=== PATIENT | male | born 1965 | race Caucasian/White ===

== ENCOUNTER → 2020-11-01 | Outpatient (CLI) | payer BC ==
--- NOTE | 2020-11-01 17:49 | DIREP ---
PROCEDURE:CT ABDOMEN W/ + W/O CONTRAST COMPARISON:None. INDICATIONS:R10.13 EPIGASTRIC PAIN TECHNIQUE:Axial images were created through the abdomen with and without non-ionic intravenous contrast material. Oral contrast was administered. Sagittal and coronal reconstructions were performed from source images. FINDINGS: LUNG BASES:Normal. No visible pulmonary or pleural disease. LIVER:Normal. No significant liver lesions are identified. BILIARY:Normal. No visible dilatation or calcification. PANCREAS:Normal. No lesion, fluid collection, ductal dilatation, or atrophy. SPLEEN:Normal. No enlargement or focal lesion. ADRENALS:Normal. No mass or enlargement. URINARY TRACT:Normal. No focal lesions or hydronephrosis. AORTA/VASCULAR:Normal. No aneurysm. RETROPERITONEUM:Normal. No mass or adenopathy. BOWEL/MESENTERY:Bowel only partially visualized as CT pelvis not ordered. Moderate stool seen throughout the colon. Small bowel partially opacified and normal in caliber. Contrast extends into the cecum. No bowel dilatation. No free fluid, free air or mesenteric inflammatory changes. ABDOMINAL WALL:Normal. No mass or hernia. PELVIC ORGANS:The pelvis was not imaged. BONES:Thoracic and lumbar spondylosis. OTHER:Negative. CONCLUSION: 1. Partially visualized bowel demonstrates moderate stool in the colon, correlate for constipation. 2. Remainder of CT abdomen unremarkable. Pelvis not imaged. Dictated by: Isaiah Jha M.D. on 11/01/2020 at 05:41 PM
== END | disposition home or self-care (01) ==
LOC: RAD 13:25
PROVIDERS: ATTEND Internal Medicine
DX: R10.13 Epigastric pain (principal)
CPT/HCPCS: 74170; Q9965